=== PATIENT | female | born 1955 | race Caucasian/White ===

== ENCOUNTER → 2017-05-17 | Outpatient (CLI) | payer BC ==
[~2017-05-17] MED LIST: AMPH20TA2 PO; CARV12.52 PO; CHOL1TAB2 PO; LXP10 PO; METO50TA7 PO; MULTTAB58 PO; SUMA100T16 PO; SYN88 PO
[2017-05-17 17:28] LABS: ALT/SGPT 36 U/L (12-78); BLOOD UREA NITROGEN 11 mg/dl (7-18); BUN/CREATININE RATIO 14.3 (10-20); CARBON DIOXIDE 30 mmol/L (21-32); CHLORIDE 105 mmol/L (98-107); CHOLESTEROL 248 mg/dl (0-200); GLUCOSE 89 mg/dl (70-99); SODIUM 140 mmol/L (136-145)
[2017-05-17 17:39] LABS: ALB/GLOB RATIO 1.1 (0.9-2); ALKALINE PHOSPHATASE 54 U/L (45-117); AST/SGOT 18 U/L (15-37); CHOLESTEROL/HDL RATIO 3.2; HDL CHOLESTEROL 78 mg/dl; LDL CHOLESTEROL CALCULATED 141 mg/dl; TRIGLYCERIDES 145 mg/dl (0-150); VERY LOW DENSITY LIPOPROT CALC 29 mg/dl
[2017-05-18 06:09] LABS: ESTIMATED AVERAGE GLUCOSE 114 mg/dl; HA1C FLAG Normal (Normal)
== END | disposition home or self-care (01) ==
LOC: C.LABBC 13:47
PROVIDERS: ATTEND Internal Medicine
DX: E55.9 Vitamin D deficiency, unspecified (principal); I10 Essential (primary) hypertension; E03.9 Hypothyroidism, unspecified

== ENCOUNTER → 2017-06-15 | Outpatient (CLI) | payer BC ==
--- NOTE | 2017-06-15 10:12 | DIAGNOSTIC IMAGING REPORT ---
RIGHT KNEE 1 OR 2 VIEWS CLINICAL HISTORY: LEFT KNEE PAIN/RIGHT KNEE REPLACEMENT Right pain COMPARISON: None. DISCUSSION: Anatomic alignment status post total right knee replacement. Good contact between prosthetic and underlying bone. Moderate degenerative change medial and patellofemoral joint compartments left knee. There is no evidence for soft tissue swelling. IMPRESSION: Anatomic alignment status post total right knee replacement. Moderate degenerative change left knee. The above report was generated using voice recognition software. It may contain grammatical, syntax or spelling errors. Electronically signed by: Derrick Rai M.D. 06/15/2017 10:11 AM Dictated Date/Time: 06/15/2017 10:10 AM
== END | disposition home or self-care (01) ==
LOC: C.RDSM 13:12
PROVIDERS: ATTEND Physician Assistant
DX: M25.562 Pain in left knee (principal); Z96.651 Presence of right artificial knee joint; M17.12 Unilateral primary osteoarthritis, left knee

== ENCOUNTER → 2017-11-09 | Outpatient (CLI) | payer BC ==
[~2017-11-09] MED LIST changes: -LXP10 PO; -METO50TA7 PO
== END | disposition home or self-care (01) ==
LOC: C.PAPS 17:45
PROVIDERS: ATTEND Obstetrics & Gynecology
DX: Z01.419 Encounter for gynecological examination (general) (routine) without abnormal findings (principal)

== ENCOUNTER → 2017-12-30 | Outpatient (CLI) | payer BC ==
--- NOTE | 2017-12-30 15:12 | DIAGNOSTIC IMAGING REPORT ---
LEFT FOOT 3 VIEWS CLINICAL HISTORY: Left foot pain. FINDINGS: 3 views of the left foot are obtained. No prior studies are available for comparison at the time of dictation. The skeletal structures are well mineralized for age. No distracted fracture is seen. Cortical thickening is seen involving distal shafts of the second and third metatarsals. Joint spaces of the foot are well-maintained. A tiny plantar calcaneal enthesophyte is observed. The overlying soft tissues are normal as imaged. IMPRESSION: 1. No acute fracture is identified. 2. Cortical thickening is seen involving the distal shafts of the second and third metatarsals, possibly representing stress reaction. Clinical correlation will be required. Electronically signed by: Henrry Goodman M.D. 12/30/2017 3:10 PM Dictated Date/Time: 12/30/2017 3:00 PM
== END | disposition home or self-care (01) ==
LOC: C.RDSM 08:00
PROVIDERS: ATTEND Physician Assistant
DX: M79.672 Pain in left foot (principal); R93.7 Abnormal findings on diagnostic imaging of other parts of musculoskeletal system

== ENCOUNTER 2018-02-23 18:14 | Emergency (ER) | payer BC ==
[~2018-02-23] VITALS: Ht 175.3 cm; Wt 86.8 kg
[2018-02-23 18:17] VITALS: TEMP 36.9; Ht 175.3 cm; Wt 86.8 kg
[2018-02-23] MEDS ORDERED: STEROID INJ (18:57)
[2018-02-23] MEDS ORDERED: ASPI325T39 PO (18:58)
--- NOTE | 2018-02-23 19:07 | DIAGNOSTIC IMAGING REPORT ---
SINGLE VIEW CHEST CLINICAL HISTORY: Fever. Sepsis. FINDINGS: 2 AP, portable, upright chest radiographs are compared to study dated 08/23/2015. The examination is degraded by portable technique and patient rotation. The cardiomediastinal silhouette is unremarkable. The lungs and pleural spaces are clear. No pneumothorax is seen. The bony thorax is grossly intact. IMPRESSION: No active disease in the chest. Electronically signed by: Henrry Goodman M.D. 02/23/2018 7:06 PM Dictated Date/Time: 02/23/2018 7:04 PM
[2018-02-23 19:21] LABS: BASO % 0.2 %; BASO ABS # 0.02 K/uL (0-0.2); EOS % 0.8 %; EOS ABS # 0.09 K/uL (0-0.5); HEMATOCRIT 42.3 % (37-47); HEMOGLOBIN 14.4 g/dL (12.0-16.0); IG# 0.04 K/uL (0.00-0.02); LYMPH % 19.4 %; LYMPH ABS # 2.06 K/uL (1.2-3.4); MEAN CELL VOLUME 85.1 fL (80-100); MEAN PLATELET VOLUME 10.3 fL (7.4-10.4); MONO ABS # 1.17 K/uL (0.11-0.59); NEUT % 68.2 %; NEUT ABS # 7.22 K/uL (1.4-6.5); PLATELET COUNT 252 K/uL (130-400); RED CELL DISTRIBUTION WIDTH CV 13.1 % (11.5-14.5); RED CELL DISTRIBUTION WIDTH SD 40.2 fL (36.4-46.3)
[2018-02-23 19:32] LABS: PTT PATIENT 27.3 SECONDS (21.0-31.0)
[2018-02-23 19:38] LABS: ALBUMIN 3.8 gm/dl (3.4-5.0); ALT/SGPT 29 U/L (12-78); BLOOD UREA NITROGEN 26 mg/dl (7-18); CALCIUM 8.9 mg/dl (8.5-10.1); CARBON DIOXIDE 28 mmol/L (21-32); CREATININE 1.14 mg/dl (0.60-1.20); GLUCOSE 89 mg/dl (70-99); LIPASE 165 U/L (73-393); SODIUM 138 mmol/L (136-145)
[2018-02-23 19:49] LABS: ALKALINE PHOSPHATASE 70 U/L (45-117); AST/SGOT 14 U/L (15-37); CKMB 0.8 ng/ml (0.5-3.6); TOTAL PROTEIN 7.5 gm/dl (6.4-8.2)
--- NOTE | 2018-02-23 19:56 | EMERGENCY ROOM VISIT NOTE ---
History Report prepared by Danielle: Geoffrey Guerrero Under the Supervision of: Dr. Karosn Irizarry D.O. First contact with patient: 18:23 Chief Complaint: HYPERTENSION Stated Complaint: HYPERTENSION, UNCONTROLED-REFERRED History of Present Illness The patient is a 62 year old female who presents to the Emergency Room with complaints of constant high blood pressure that began 1 day ago. She rates this pain as 0/10 and states that she feels anxious because her blood pressure is high. She was refereed by Dr. Hernández to come to the ED for an EKG. Last night , she took Aspirin (325 mg) with some improvement. She has degenerative cervical disks and went to the pain clinic recently for a steroid shot. She states that she takes Coreg (twice a day), thyroid medication, ADD medication, and nasal medication. The patient reports that at her last physical exam [address] Hernández with benign findings. She states that her current episodes are similar to when she had hot flashes during menopause. She denies SOB, chest pain, and headache. She denies any new medication or new stressors. Source of History: patient Onset: 1 day ago Position: other (heart) Symptom Intensity: pain rated as 0/10 Quality: other (elevated blood pressure) Modifying Factors (Relieving): other (Aspirin) Associated Symptoms: No headache, No chest pain, No SOB Review of Systems See HPI for pertinent positives & negatives. A total of 10 systems reviewed and were otherwise negative. Past Medical & Surgical Medical Problems: (1) Pleurisy Family History Heart disease Pleurisy Social History Smoking Status: Never Smoker Smokeless Tobacco Use: No Alcohol Use: none Drug Use: none Marital Status: Housing Status: lives with family Current/Historical Medications Scheduled Amphetamine-Dextroamphetamine 20MG (Adderall 20MG), 20 MG PO DAILY Carvedilol (Coreg), 12.5 MG PO BID Cholecalciferol (Vitamin D-3), 4,000 UNITS PO DAILY Levothyroxine Sodium (Synthroid), 88 MCG PO DAILY Multiple Vitamin (Multivitamin), 1 TAB PO QAM [steroid injection], 1 DOSE INJ YEARLY Scheduled PRN Aspirin (Aspirin Ec), 325 MG PO DAILY PRN for blood pressure Sumatriptan Succinate (Imitrex), 100 MG PO UD PRN for Migraine Allergies Coded Allergies: No Known Allergies (Unverified , 02/23/18) Physical Exam Vital Signs Date Time Temp Pulse Resp B/P (MAP) Pulse Ox O2 Delivery O2 Flow Rate FiO2 02/23/18 18:17 36.9 76 17 183/107 97 Room Air Physical Exam CONSTITUTIONAL/VITAL SIGNS: Reviewed / noted above. GENERAL: Non-toxic in appearance. INTEGUMENTARY: Warm, dry, and [place]. HEAD: Normocephalic. EYES: without scleral icterus or trauma. ENT/OROPHARYNX: clear and moist. LYMPHADENOPATHY/NECK: Is supple without lymphadenopathy or meningismus. RESPIRATORY: Lungs clear and equal. CARDIOVASCULAR: Regular rate and rhythm. GI/ABDOMEN: Soft and nontender. No organomegaly or pulsatile mass. No rebound or guarding. Normal bowel sounds. EXTREMITIES: Warm and well perfused. BACK: No CVA tenderness. NEUROLOGICAL: Intact without focal deficits. PSYCHIATRIC: normal affect. MUSCULOSKELETAL: Normally developed with good muscle tone. Medical Decision & Procedures ER Provider Diagnostic Interpretation: Radiology results as stated below per my review and radiologist interpretation: SINGLE VIEW CHEST CLINICAL HISTORY: Fever. Sepsis. FINDINGS: 2 AP, portable, upright chest radiographs are compared to study dated 08/23/2015. The examination is degraded by portable technique and patient rotation. The cardiomediastinal silhouette is unremarkable. The lungs and pleural spaces are clear. No pneumothorax is seen. The bony thorax is grossly intact. IMPRESSION: No active disease in the chest. Electronically signed by: Henrry Goodman M.D. 02/23/2018 7:06 PM Dictated Date/Time: 02/23/2018 7:04 PM Laboratory Results 02/23/18 19:00 Red Blood Count 4.97, Mean Corpuscular Volume 85.1, Mean Corpuscular Hemoglobin 29.0, Mean Corpuscular Hemoglobin Concent 34.0, Mean Platelet Volume 10.3, Neutrophils (%) (Auto) 68.2, Lymphocytes (%) (Auto) 19.4, Monocytes (%) (Auto) 11.0, Eosinophils (%) (Auto) 0.8, Basophils (%) (Auto) 0.2, Neutrophils # (Auto ) 7.22, Lymphocytes # (Auto) 2.06, Monocytes # (Auto) 1.17, Eosinophils # (Auto ) 0.09, Basophils # (Auto) 0.02 02/23/18 19:00 Test 02/23/18 19:00 White Blood Count 10.60 K/uL (4.8-10.8) Red Blood Count 4.97 M/uL (4.2-5.4) Hemoglobin 14.4 g/dL (12.0-16.0) Hematocrit 42.3 % (37-47) Mean Corpuscular Volume 85.1 fL (80-100) Mean Corpuscular Hemoglobin 29.0 pg (25-34) Mean Corpuscular Hemoglobin Concent 34.0 g/dl (32-36) Platelet Count 252 K/uL (130-400) Mean Platelet Volume 10.3 fL (7.4-10.4) Neutrophils (%) (Auto) 68.2 % Lymphocytes (%) (Auto) 19.4 % Monocytes (%) (Auto) 11.0 % Eosinophils (%) (Auto) 0.8 % Basophils (%) (Auto) 0.2 % Neutrophils # (Auto) 7.22 K/uL (1.4-6.5) Lymphocytes # (Auto) 2.06 K/uL (1.2-3.4) Monocytes # (Auto) 1.17 K/uL (0.11-0.59) Eosinophils # (Auto) 0.09 K/uL (0-0.5) Basophils # (Auto) 0.02 K/uL (0-0.2) RDW Standard Deviation 40.2 fL (36.4-46.3) RDW Coefficient of Variation 13.1 % (11.5-14.5) Immature Granulocyte % (Auto) 0.4 % Immature Granulocyte # (Auto) 0.04 K/uL (0.00-0.02) Prothrombin Time 10.1 SECONDS (9.0-12.0) Prothromb Time International Ratio 1.0 (0.9-1.1) Activated Partial Thromboplast Time 27.3 SECONDS (21.0-31.0) Partial Thromboplastin Ratio 1.1 Anion Gap 6.0 mmol/L (3-11) Est Creatinine Clear Calc Drug Dose 60.9 ml/min Estimated GFR () 60.1 Estimated GFR (Non- 51.9 BUN/Creatinine Ratio 22.6 (10-20) Calcium Level 8.9 mg/dl (8.5-10.1) Total Bilirubin 0.2 mg/dl (0.2-1) Direct Bilirubin < 0.1 mg/dl (0-0.2) Aspartate Amino Transf (AST/SGOT) 14 U/L (15-37) Alanine Aminotransferase (ALT/SGPT) 29 U/L (12-78) Alkaline Phosphatase 70 U/L (45-117) Total Creatine Kinase 38 U/L (26-192) Creatine Kinase MB 0.8 ng/ml (0.5-3.6) Creatine Kinase MB Ratio 2.1 (0-3.0) Troponin I < 0.015 ng/ml (0-0.045) Total Protein 7.5 gm/dl (6.4-8.2) Albumin 3.8 gm/dl (3.4-5.0) Lipase 165 U/L (73-393) Thyroid Stimulating Hormone (TSH) 1.200 uIu/ml (0.300-4.500) Laboratory results as stated above per my review. ECG Per My Interpretation Indication: other (high blood pressure) Rate (beats per minute): 70 Rhythm: normal sinus Findings: no ectopy, other (No ST elevation) ED Course 1822: Previous medical records were reviewed. The patient was evaluated in room A2. A complete history and physical examination was performed. 1954: I checked on the patient and reviewed her radiology findings with her. 2009: On reevaluation, the patient is resting comfortably. I discussed the results and findings with the patient. She verbalized agreement of the treatment plan. She was discharged home. Medical Decision the differential was considered includes acute myocardial infarction, acute coronary syndrome, myocarditis, pericarditis, pericardial effusions /tamponade, esophageal perforation, thoracic aortic dissection, pulmonary embolism, pneumonia, pneumothorax, pancreatitis, shingles, acute cholecystitis, perforated abdominal viscus. This is a 62-year-old female who presents to the ED with a chief complaint of hypertension. The patient states that she has been checking her blood pressure for the past couple of days and her blood pressure has been elevated with systolic pressures anywhere from 162-195/91-107. She has been taking her blood pressure more than 5 times daily. The patient states that she has an anxious feeling because she states that she can feel when her blood pressure is elevated. She denies chest pains or shortness of breath or headaches. She denies any recent illness. She does have some chronic neck issues for which she received an injection of a steroid last week. During that visit her blood pressure was elevated as well. It was felt to be attributable to her pain and preprocedure anxiety. Her current blood pressure on evaluation here today was 183/107. She is currently taking Coreg for hypertension. Her physical exam was unremarkable. She appears asymptomatic. She is in no distress. Chest x- ray did not show acute disease, EKG shows a normal sinus rhythm at a rate of 70 , CBC is normal, chemistry panel was unremarkable, troponin was negative, TSH was within normal limits. The patient was told the results of the test. She is felt to be stable for discharge and outpatient follow-up. At this point, we will not place the patient on any additional blood pressure medications. This is referred to the PCP for further evaluation. Of note, the patient's last blood pressure was 166/99. Medication Reconcilliation Current Medication List: was personally reviewed by me Blood Pressure Screening Patient's blood pressure: Elevated blood pressure Blood pressure disposition: Referred to PCP Impression Primary Impression: Hypertension Scribe Attestation The scribe's documentation has been prepared under my direction and personally reviewed by me in its entirety. I confirm that the note above accurately reflects all work, treatment, procedures, and medical decision making performed by me. Departure Information Referrals Willy Hernández M.D. (PCP) Patient Instructions Hypertension Dc, My [facility] Additional Instructions Follow-up with your doctor for recheck later this week or early next week for recheck your blood pressure. Follow-up with your doctor for further care and evaluation in 1-2 days. Return to the emergency department for worsening or new symptoms or any concerns. You have been examined and treated today on an emergency basis only. This is not a substitute for, or an effort to provide, complete comprehensive medical care. It is impossible to recognize and treat all injuries or illnesses in a single emergency department visit. It is therefore important that you follow up closely with your doctor. Call as soon as possible for an appointment.
[2018-02-23 20:19] VITALS: BP 173/96; PULSE 74; O2SAT 97
== END 2018-02-23 20:22 | disposition home or self-care (01) ==
LOC: C.EDB 18:16 → C.EDA 20:22
DX: I10 Essential (primary) hypertension (principal); Z82.49 Family history of ischemic heart disease and other diseases of the circulatory system

== ENCOUNTER → 2018-06-24 | Outpatient (CLI) | payer BC ==
[~2018-06-24] MED LIST changes: +ASPI325T39 PO; +STEROID INJ
[2018-06-24 17:04] LABS: ALBUMIN 4.1 gm/dl (3.4-5.0); ALKALINE PHOSPHATASE 54 U/L (45-117); ALT/SGPT 21 U/L (12-78); AST/SGOT 13 U/L (15-37); BLOOD UREA NITROGEN 13 mg/dl (7-18); CALCIUM 9.2 mg/dl (8.5-10.1); CARBON DIOXIDE 29 mmol/L (21-32); GLUCOSE 99 mg/dl (70-99); POTASSIUM 3.6 mmol/L (3.5-5.1); SODIUM 140 mmol/L (136-145); TOTAL PROTEIN 7.9 gm/dl (6.4-8.2)
== END | disposition home or self-care (01) ==
LOC: C.LABBC 14:33
PROVIDERS: ATTEND Internal Medicine
DX: I10 Essential (primary) hypertension (principal)

== ENCOUNTER 2022-03-04 06:32 | Observation (INO) ==
--- NOTE | 2022-02-11 15:53 | PAT Medication Instructions ---
Medication Instructions Date of Service February 11, 2022 Home Medications Medication Instructions Recorded sumatriptan succinate 100 mg 100 mg PO DIRECTED PRN #30 tab 12/25/20 tablet (Imitrex) carvedilol 12.5 mg tablet 12.5 mg PO BID #180 tab 11/27/21 indapamide 1.25 mg tablet 1.25 mg PO QAM #30 tab 01/15/22 oxycodone-acetaminophen 5 mg-325 1 tab PO Q12H PRN #18 tab 01/30/22 mg tablet (Percocet) cholecalciferol (vitamin D3) 100 mcg (4,000 unit) capsule (Vitamin D3) 4,000 unit PO QAM sumatriptan succinate 100 mg tablet (Imitrex) 100 mg PO DIRECTED PRN ipratropium bromide 42 mcg (0.06 %) nasal spray 2 spray INTNAS TID PRN carvedilol 12.5 mg tablet 12.5 mg PO BID cyanocobalamin (vitamin B-12) 500 mcg tablet 500 mcg PO QAM indapamide 1.25 mg tablet 1.25 mg PO QAM oxycodone-acetaminophen 5 mg-325 mg tablet (Percocet) 1 tab PO Q12H PRN dextroamphetamine-amphetamine ER 20 mg 24hr capsule,extend release (Adderall XR) 20 mg PO QAM levothyroxine 88 mcg tablet 88 mcg PO QAM DO NOT take the morning of surgery cholecalciferol (vitamin D3) 100 mcg (4,000 unit) capsule (Vitamin D3) 4,000 unit PO QAM cyanocobalamin (vitamin B-12) 500 mcg tablet 500 mcg PO QAM indapamide 1.25 mg tablet 1.25 mg PO QAM dextroamphetamine-amphetamine ER 20 mg 24hr capsule,extend release (Adderall XR) 20 mg PO QAM Take morning of surgery With a small sip of water, OTHERWISE NOTHING TO EAT OR DRINK AFTER MIDNIGHT: sumatriptan succinate 100 mg tablet (Imitrex) 100 mg PO DIRECTED PRN (if needed) ipratropium bromide 42 mcg (0.06 %) nasal spray 2 spray INTNAS TID PRN (if needed) carvedilol 12.5 mg tablet 12.5 mg PO BID oxycodone-acetaminophen 5 mg-325 mg tablet (Percocet) 1 tab PO Q12H PRN (okay to take up to 4 hours prior to surgery if needed) levothyroxine 88 mcg tablet 88 mcg PO QAM Take evening before surgery sumatriptan succinate 100 mg tablet (Imitrex) 100 mg PO DIRECTED PRN (if needed) ipratropium bromide 42 mcg (0.06 %) nasal spray 2 spray INTNAS TID PRN (if needed) carvedilol 12.5 mg tablet 12.5 mg PO BID oxycodone-acetaminophen 5 mg-325 mg tablet (Percocet) 1 tab PO Q12H PRN (if needed) Other Notes If you have any questions please call us at [phone] or [phone] or [phone] or [phone]
--- NOTE | 2022-02-16 11:28 | Anesthesiology Consultation ---
Date of Service February 16, 2022 Assessment & Plan (1) Encounter for pre-operative examination: - awaiting neurology and PCP pre-op evaluations and recommendations. - rheumatology telemedicine visit 01/24/2022: "...further evaluation of positive HOWIE and concern for systemic lupus versus seronegative rheumatoid arthritis...having issues with her right hand...sudden onset of pain and swelling of her right hand...trouble twisting her wrist and it was not red...extremely painful...had labs done and was found to have a positive HOWIE...prescribed Celebrex...given prednisone...which was helpful...had seen pain management and had an injection to the back of her neck...is scheduled to have a knee replacement on 03/06/22...when this happened to her right wrist, her left knee swelled up...history notable for severe dry mouth...dry eye symptoms...initially carried a diagnosis of multiple sclerosis but when she was seen by another neurologist, this diagnosis was not confirmed. Diagnosis was in the setting of severe migraines and an abnormal MRI...diagnosed with peripheral neuropathy for which she is on gabapentin...Overall I think the acute onset of right wrist pain and swelling is more consistent with pseudogout...has osteoarthritis which can certainly flare up as well. Not sure why inflammatory markers were not done in the setting of the acute monoarticular arthritis...would not recommend keeping her on moderate doses of steroids...believe her HOWIE is actually associated either with her history of Carlie's thyroiditis or Sjogren's syndrome...no other clinical features suggestive of lupus...advised to taper prednisone...consider either colchicine or another NSAID...next steps pending test results..." - no available neurology records. Imaging records: MRI brain with and without contrast 12/11/2020: Multiple MS plaques, about the same. No enhancing plaques or areas of increased diffusion weighted signal. Head CT 08/19/2018: nonspecific scattered white matter hypodensities. Case discussed with Dr. De La Torre who advised patient will need neurology pre-op evaluation for optimization and recommendations including if is acceptable for neuraxial anesthesia or if should undergo general anesthesia. Form completed. - occasional dyspnea on exertion and trace pitting edema discussed with Dr. De La Torre who advised PCP pre-op evaluation with repeat EKG. Form completed. - Gio at surgeon's office made aware of above. - COVID screening: Per assessment on 02/16/2022: Travel screen negative, no known COVID-19 positive contacts or current COVID-19 related symptoms in past 2 weeks. Patient vaccinated. Surgeon arranging preop COVID testing, scheduled 03/02/2022. Awaiting results. Chart Review Chart Review: Pending: Refer to Additional Notes / Consult section and Patient seen in Pre Admission Testing Teaching & Discussion Pre-Anesthesia Teaching/Discussion Notes: Instructed NPO after midnight before surgery, except medications with 15 cc of water. Medication instructions provided according to the PAT guidelines. History Surgery Operation Date: 03/04/22 09:00 Proposed Procedures p Left Total Knee Arthroplasty - Brooks Robledo MD Height/Weight Height: 5 ft 9 in Weight: 86.7 kg Allergies Allergy/AdvReac Type Severity Reaction Status Date / Time bupropion [From Wellbutrin] AdvReac Intermediate Headache Verified 02/12/22 13:00 cyclobenzaprine AdvReac Intermediate Muscle Verified 02/12/22 13:00 Pain / leg pain escitalopram AdvReac Intermediate Anxiety Verified 02/12/22 13:00 paroxetine [From Paxil] AdvReac Intermediate Headache, Verified 02/12/22 13:00 Fatigue sertraline [From Zoloft] AdvReac Mild Fatigue Verified 02/12/22 13:00 venlafaxine AdvReac Mild Fatigue Verified 02/12/22 13:00 Medications Home Medications Medication Instructions Recorded Confirmed Last Taken cholecalciferol (vitamin D3) 100 4,000 unit PO QAM 06/22/19 02/12/22 Unknown mcg (4,000 unit) capsule (Vitamin D3) sumatriptan succinate 100 mg 100 mg PO DIRECTED PRN #30 tab 12/25/20 02/12/22 Unknown tablet (Imitrex) ipratropium bromide 42 mcg (0.06 2 spray INTNAS TID PRN 04/25/21 02/12/22 Unknown %) nasal spray carvedilol 12.5 mg tablet 12.5 mg PO BID #180 tab 11/27/21 02/12/22 Unknown cyanocobalamin (vitamin B-12) 500 500 mcg PO QAM tab 12/30/21 02/12/22 Unknown mcg tablet indapamide 1.25 mg tablet 1.25 mg PO QAM #30 tab 01/15/22 02/12/22 Unknown dextroamphetamine-amphetamine ER 20 mg PO QAM 02/11/22 02/12/22 Unknown 20 mg 24hr capsule,extend release (Adderall XR) levothyroxine 88 mcg tablet 88 mcg PO QAM 02/11/22 02/12/22 Unknown oxycodone-acetaminophen 5 mg-325 1 tab PO Q12H PRN #18 tab 02/11/22 02/12/22 Unknown mg tablet (Percocet) pregabalin 25 mg capsule 25 mg PO BID #60 cap 02/13/22 02/13/22 Unknown Past Medical History Medical History (Updated 02/16/22 @ 16:09 by Zaira Nichole PA-C) ADD (attention deficit disorder) Cervical radiculopathy Cervicalgia Chronic cerebral ischemia pt denies h/o stroke, states MS was considered as possible diagnosis, has not seen a neurologist > 4 yrs Degenerative disc disease Dyslipidemia Carlie's thyroiditis Hypertension controlled, stable per pt Hypothyroidism Leg length discrepancy Migraine syndrome Neuropathy generalized -- follows with [facility] rheumatology and (hx of seeing [facility] Neurology) and now sees [facility] neurology Pleurisy chronic, no problems recently. no pulmonology currently. Sicca syndrome follows with [facility] Rheumatology Situational depression Varicose veins of left lower extremity with edema Patient denies h/o seizures, heart attack, heart failure, DM, blood clots or blood transfusions. Exercise / Class Metabolic Activity II 4-5 Yardwork/Stairs/Walk up hill (occasional SOB with 1 FOS due to knee pain, denies CP) Past Family History Family History Father Myocardial infarction Hx of CABG Hypertension Cardiac disorder Grandfather Myocardial infarction Son Type 1 diabetes mellitus Uncle Cardiovascular disease Premature Sister Myocardial infarction Mother Hypertension Breast cancer Past Surgical History Surgical History (Updated 02/16/22 @ 15:01 by Gio Washington PA-C) H/O section x2 H/O oral surgery dental implants (10 dental implants) History of colonoscopy History of total right knee replacement S/P epidural steroid injection cervical with Dr Jacob S/P LASIK surgery Past Anesthesia History No Hx of Anesthesia Complications and No Family Hx of Anesthesia Complications History of PONV No Hx of PONV and No Hx of Motion Sickness Social History Smoking Status: Never smoker Do You Dip or Chew Tobacco: No Hx Alcohol Use: No Hx Substance Use: No substance use type: does not use Review of Systems Patient denies chest pain, snoring, witnessed apneas, reflux, fever, chills, cough, wheezing, or palpitations. Physical Exam Vital Signs Vitals BP 158/68 (Pt states is often elevated due to anxiety with needles/anticipated lab draw, reports 117/70s at surgeon's office this am) P 70 TEMP 98.3 SP02 96% on RA RESP 17 Physical Limited cervical extension range of motion without pain Full TMJ range of motion TMD 3 finger breaths Mallampati Score 3 Dentition: intact, 10 dental implants-front; denies chipped or loose teeth, caps/crowns or bridges Lungs: normal respiratory effort. Clear throughout to auscultation, no adventitious breath sounds Cardiac: regular rate and rhythm, no murmurs noted Carotid arteries: negative bruit bilat Extremities: trace pitting edema distal lower extremities bilat; chronic, unchanged per pt Lab Results Anesthesia Preop Results Results Anesthesia Widget: WBC 8.21 K/uL (4.8-10.8) 02/16/22 Hgb 13.2 g/dL (12.0-16.0) 02/16/22 Hct 38.9 % (37-47) 02/16/22 Plt 296 K/uL (130-400) 02/16/22 Na 139 mmol/L (136-145) 02/16/22 K 3.8 mmol/L (3.5-5.1) 02/16/22 Cl 101 mmol/L (98-107) 02/16/22 CO2 32 mmol/L (21-32) 02/16/22 BUN 16 mg/dl (6-23) 02/16/22 Creat 0.69 mg/dl (0.6-1.2) 02/16/22 Glucose Level 90 mg/dl (70-99(Fasting)) 02/16/22 PT 10.2 Seconds (9.0-12.0) 02/16/22 PTT 33.6 Seconds (21.0-31.0) H 02/16/22 INR 1.0 (0.9-1.1) 02/16/22 HA1c 5.8 % (4.5-5.6) H 02/16/22 Urine Color Yellow 02/16/22 Urine Appearance Clear (Clear) 02/16/22 Urine pH 6.5 (4.5-7.5) 02/16/22 Urine Specific [place] 1.014 (1.000-1.030) 02/16/22 Urine Protein Negative (Negative) 02/16/22 Urine Glucose (UA) Negative (Negative) 02/16/22 Urine Ketones Negative (Negative) 02/16/22 Urine Blood Negative (Negative) 02/16/22 Urine Nitrite Negative (Negative) 02/16/22 Urine Bilirubin Negative (Negative) 02/16/22 Urine Urobilinogen Negative (Negative) 02/16/22 Urine Leukocyte Esterase Negative (Negative) 02/16/22 Blood Type O Positive 02/16/22 Antibody Screen NEGATIVE 02/16/22 Testing Laboratory Results 01/28/2022 SODIUM: 141 POTASSIUM: 3.9 CHLORIDE: 101 CO2: 11 BUN: 22 CREATININE: 0.8 GLUCOSE: 96 Electrocardiogram Date: 02/16/22 Poor data quality NSR, rate [address] abnormality Chest X-Ray Date: 02/16/22 FINDINGS: No lines and tubes are seen. The cardiomediastinal silhouette is normal. The lungs are clear. No evidence of pleural effusion or pneumothorax. IMPRESSION: No acute chest disease. Cervical Spine Date: 12/19/21 FINDINGS: Straightening of the normal cervical lordosis. Multilevel decubitus space narrowing is moderate at C5-C6. Multilevel spondylitic spurring with uncovertebral hypertrophy. There is severe multilevel facet arthrosis. No acute fracture, subluxation or endplate erosions. No prevertebral edema. Mild left- sided neural foraminal narrowing at C5-C6. Lung apices are clear. IMPRESSION: 1. No acute fracture or subluxation. 2. Multilevel degenerative changes as above. Other Testing C-spine MRI 01/02/2022 IMPRESSION: 1. Compared to previous examination, there is evidence for increasing degenerative disc disease as delineated disc space level above. 2. Mild central canal stenosis is present particularly at C5-6. 3. Segmental foraminal stenosis also present. 4. No focal disc protrusion/herniation is identified.
--- NOTE | 2022-02-16 15:07 | History & Physical Report ---
Date of Service February 16, 2022 Assessment & Plan (1) Left knee DJD: Plan: Postoperative prescriptions for Percocet and Coumadin will be provided at discharge from the hospital. Anticipate discharge to home with home health services. PAT visit with testing was scheduled for today. She has already seen her PCP for medical clearance. The patient already has a cane and walker. PDMP was checked and there are no concerning findings. The patient is aware of the C OVID-19 risks associated with surgery. She is currently asymptomatic of any COVID-19 symptoms. She will obtain nasal swab testing 2 days prior to surgery. Call with any other concerns. History of Present Illness Chief Complaint: Left knee pain Primary Care Provider: Willy Hernández MD This 66-year-old female presents today with her , for her preoperative history and physical. She is scheduled to undergo a left knee total knee arthroplasty on 03/04/2022. The patient has had a longstanding history of left knee pain. It has been ongoing for over five years. It has become worse with time. She has tried conservative care measures including activity modification, use of an assistive device, and viscosupplementation injections without improvement. She elects to proceed with surgical intervention after being educated about potential risks and outcomes. Her pain is affecting her ADLs. It is worse with weightbearing. She is adjusting her activity and sitting more due to her knee pain. She would like to be more active. Frequent night pain. Occasional effusions. No catching or locking. Allergies Allergy/AdvReac Type Severity Reaction Status Date / Time bupropion [From Wellbutrin] AdvReac Intermediate Headache Verified 02/12/22 13:00 cyclobenzaprine AdvReac Intermediate Muscle Verified 02/12/22 13:00 Pain / leg pain escitalopram AdvReac Intermediate Anxiety Verified 02/12/22 13:00 paroxetine [From Paxil] AdvReac Intermediate Headache, Verified 02/12/22 13:00 Fatigue sertraline [From Zoloft] AdvReac Mild Fatigue Verified 02/12/22 13:00 venlafaxine AdvReac Mild Fatigue Verified 02/12/22 13:00 Home Medications Medication Instructions Recorded Confirmed Type cholecalciferol (vitamin D3) 100 4,000 unit PO QAM 06/22/19 02/12/22 History mcg (4,000 unit) capsule (Vitamin D3) sumatriptan succinate 100 mg 100 mg PO DIRECTED PRN #30 tab 12/25/20 02/12/22 Rx tablet (Imitrex) ipratropium bromide 42 mcg (0.06 2 spray INTNAS TID PRN 04/25/21 02/12/22 History %) nasal spray carvedilol 12.5 mg tablet 12.5 mg PO BID #180 tab 11/27/21 02/12/22 Rx cyanocobalamin (vitamin B-12) 500 500 mcg PO QAM tab 12/30/21 02/12/22 History mcg tablet indapamide 1.25 mg tablet 1.25 mg PO QAM #30 tab 01/15/22 02/12/22 Rx dextroamphetamine-amphetamine ER 20 mg PO QAM 02/11/22 02/12/22 History 20 mg 24hr capsule,extend release (Adderall XR) levothyroxine 88 mcg tablet 88 mcg PO QAM 02/11/22 02/12/22 History oxycodone-acetaminophen 5 mg-325 1 tab PO Q12H PRN #18 tab 02/11/22 02/12/22 Rx mg tablet (Percocet) pregabalin 25 mg capsule 25 mg PO BID #60 cap 02/13/22 02/13/22 Rx Past Med/Surg History Medical History (Updated 02/16/22 @ 15:04 by Gio Washington PA-C) ADD (attention deficit disorder) Cervical radiculopathy Cervicalgia Chronic cerebral ischemia hx of seeing [facility] Neurology, now follows with [facility] - no neuro records available for review to review past 2017 Degenerative disc disease Dyslipidemia Carlie's thyroiditis Hypertension controlled, stable per pt Hypothyroidism Leg length discrepancy Migraine syndrome Neuropathy generalized -- follows with [facility] rheumatology and (hx of seeing [facility] Neurology) and now sees [facility] neurology Pleurisy chronic, no problems recently. no pulmonology currently. Sicca syndrome follows with [facility] Rheumatology Situational depression Varicose veins of left lower extremity with edema Surgical History (Updated 02/16/22 @ 15:01 by Gio Washington PA-C) H/O section x2 H/O oral surgery dental implants (10 dental implants) History of colonoscopy History of total right knee replacement S/P epidural steroid injection cervical with Dr Jacob S/P LASIK surgery Family History Father Myocardial infarction Hx of CABG Hypertension Cardiac disorder Grandfather Myocardial infarction Son Type 1 diabetes mellitus Uncle Cardiovascular disease Premature Sister Myocardial infarction Mother Hypertension Breast cancer Social History Smoking Status: Never smoker Second Hand Exposure: No; Hx Alcohol Use: No Hx Substance Use: No Preferred Language: Malay Communication Ability: Effective Visual Impairment: Partially Limited Hearing Ability: Normal 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 Physical Exam Physical Exam: Vitals: Height 176.4 cm, weight 87.6 kilograms, BMI 28.2, temperature 36.5, BP 112/72, respirations 16, O2 sat 96% on room air. General: Well-developed, well-nourished middle-aged white female in no acute distress. Sitting in a chair. Alert and oriented. Obvious discomfort. Skin: Warm and dry with good turgor. No rashes or lesions. No ecchymosis or erythema. She does have an effusion in the left knee. HEENT: Normocephalic, atraumatic. Eyes: PERRLA, EOMI. Nares and oropharynx exams deferred due to COVID precautions. Heart: RRR. No MGR. Lungs: Clear to auscultation bilaterally. No crackles, rhonchi or wheezing. Good air movement. Abdomen: Bowel sounds present x4, soft, nontender. Mildly obese. No organomegaly. Musculoskeletal: Left knee evaluation reveals a lack of about 10 degrees of terminal extension. Flexion to around 100 degrees. Strength is 5/5 with fair quad tone. There is obvious varus deformity. She has focal discomfort with palpation over the medial aspect of her knee as well as the anterior peripatellar region. No pain over the lateral aspect. Stable cruciate and collateral ligaments. No defect in the patellar tendon or quadriceps tendon. She is ambulating with a severely antalgic gait, not bending the left knee. Neurologic: Gross sensation is intact across both lower extremities by soft touch. Peripheral pulses are 2+. Results & Data Results & Data ([facility]) Diagnostic Findings Radiographic imaging previously obtained shows severe medial joint space narrowing. She is omzw-up-temt. Periarticular osteophytes as well as subchondral sclerosis are both evident. No evidence of loose bodies. No evidence of fractures. Code Status & VTE Plan VTE Prophylaxis Plan VTE Prophylaxis will be ordered: Yes
--- NOTE | 2022-03-04 06:26 | History & Physical Bridge Note ---
Date of Service March 04, 2022 History & Physical Bridge Note I have examined the patient, reviewed the History & Physical and in the interval since the performance of the History & Physical I have noted the following changes of clinical significance: consent obtained/site verified /covid screen negative.no changes noted
[~2022-03-04 06:32] MED LIST changes: -AMPH20TA2 PO; -ASPI325T39 PO; -CARV12.52 PO; -CHOL1TAB2 PO; +LR 15ML/HR IV SCH; +LR 60ML/HR IV SCH; -MULTTAB58 PO; +ROPIVACAINE 0.5% HCL/PF 150 MG, BUPIVACAINE 0.75% MPF 20 ML, EPINEPHrine 0.15 MG, Ketor... INFIL SCH; -STEROID INJ; -SUMA100T16 PO; -SYN88 PO; +TRANEXAMIC ACID 1,000 MG **IV Pre-op IV SCH; +ceFAZolin 2000MG 2,000 MG/15 ML SYR IV SCH
[2022-03-04] MEDS ORDERED: BUPIVACAINE 0.5 % 5 MG/1 ML PF 10ML VIAL ONE (06:33)
[2022-03-04] MEDS ORDERED: LIDOCAINE 2% 2 ML VIAL/AMP(20MG/ML) INFIL ONE (07:37)
[2022-03-04] MEDS ORDERED: PROPOFOL IV EMULSION 10 MG/ML 20 ML VIAL IV ONE ×2 (07:37→10:17)
[2022-03-04] MEDS ORDERED: MIDAZOLAM HCL 1 MG/ML 2ML VIAL ONE (07:38)
[2022-03-04] MEDS ORDERED: fentaNYL citrate 100 MCG/2 ML VIAL ONE (07:38)
[2022-03-04] MEDS ORDERED: DEXAMETHASONE SOD INJ 4 MG/ML VIAL ONE (07:44)
[2022-03-04] MEDS ORDERED: HYDROmorphone INJ 2 MG/ML SYR/VIAL IV PRN (08:39)
[2022-03-04] MEDS ORDERED: ONDANSETRON INJ 2 MG/ML 2 ML VIAL IV PRN ×2 (08:39→12:11)
[2022-03-04] MEDS ORDERED: ePHEDrine sulfate 50 MG/ML AMP IV PRN (08:39)
[2022-03-04] MEDS ORDERED: ATROPINE SULFATE 0.1 MG/ML 10ML SYR IV PRN (08:39)
[2022-03-04] MEDS ORDERED: fentaNYL citrate 100 MCG/2 ML VIAL IV PRN (08:39)
[2022-03-04] MEDS ORDERED: ORTHO JOINT ANESTHETIC ONE (09:00)
[2022-03-04] MEDS ORDERED: KETAMINE 50 MG/5 ML SYRINGE ONE (09:43)
--- NOTE | 2022-03-04 09:56 | Discharge Summary (DS) ---
DATE OF ADMISSION: 03/04/2022. DATE OF POTENTIAL DISCHARGE: 03/05/2022. CHIEF COMPLAINT: Left knee pain. HISTORY OF PRESENT ILLNESS: Underwent elective left total knee replacement. At this point in time, things are uneventful. ALLERGIES: INCLUDE WELLBUTRIN, CYCLOBENZAPRINE, ESCITALOPRAM, PAXIL, ZOLOFT, AND VENLAFAXINE. HOME MEDICATIONS: Include vitamins, Imitrex, ipratropium bromide nasal spray, carvedilol, vitamin B1 2, indapamide, decongestants, thyroid replacement levothyroxine, p.r.n. Percocet and pregabalin 25 mg . PAST MEDICAL HISTORY: Remarkable for ADD, cervical radiculopathy, cervicalgia, chronic cerebral isch emia follows with Neurology, DJD, dyslipidemia, Carlie's thyroiditis, hypertension, hypothyroidism , leg length discrepancy, migraine syndrome, neuropathy, pleurisy, sicca syndrome sees Rheumatology, reactive depression, varicose veins. PAST SURGICAL HISTORY: Remarkable for , oral surgery, colonoscopies, right total knee repla cement, epidural steroid injection, LASIK surgery. FAMILY HISTORY: Remarkable for cardiac disease vessel, hypertension, diabetes mellitus type 1, breas t cancer. SOCIAL HISTORY: Does not smoke. Social drinking only. and lives with spouse and family. REVIEW OF SYSTEMS: Noncontributory. ASSESSMENT: Status post left total knee replacement. Continue with care pathway. Discharge on 02/20 if does well overnight. Job ID: [id number]
--- NOTE | 2022-03-04 11:03 | Post Operative Brief Note ---
Immediate Post Op Note v1 Date of Surgery March 04, 2022 Pre & Post Diagnosis Operation Date: 03/04/22 08:50 Pre-Op Diagnosis: Left Knee Degenerative Joint Disease Post-Op Diagnosis: Left Knee Degenerative Joint Disease I identified the patient and participated in the time-out.: Yes Procedure Operation Date: 03/04/22 08:50 Actual Procedures p Left Total Knee Arthroplasty(Left) - Brooks Robledo MD Surgeon Brooks Robledo MD International Trade Analyst Gudelia/Padmini/Harjeet Estimated Blood Loss 25 Findings Consistent with Post-Op Diagnosis
--- NOTE | 2022-03-04 11:14 | Operative Report ---
Post Operative Report Pre & Post Diagnosis Operation Date: 03/04/22 08:50 Pre-Op Diagnosis: Left Knee Degenerative Joint Disease Post-Op Diagnosis: Left Knee Degenerative Joint Disease I identified the patient and participated in the time-out.: Yes Procedure Operation Date: 03/04/22 08:50 Actual Procedures p Left Total Knee Arthroplasty(Left) - Brooks Robledo MD Surgeon ZAYRA Robledo MD Wildlife And Game Protector Gudelia/Padmini/Harjeet Estimated Blood Loss 25 Findings Consistent with Post-Op Diagnosis see operative report Specimens see operative report Drains none Complications none Disposition Accompanied Patient To Recovery: Yes Indications This 66-year-old female presented to the office with complaints of persisting left knee pain. She had tried conservative care measures including activity modification, oral pain medication, and injection therapy, without lasting improvement. She elected to proceed with surgical intervention after being educated about potential risks and outcomes. Preoperative imaging was obtained. Description of Procedure The patient was administered a spinal anesthetic and then taken to the operating room where she was given sedation. She was prepped and draped in the usual sterile fashion. Please see Dr. Robledo's operative report for specifics of the procedure. I was present for the entire case from initial patient positioning through final wound closure. Assistance was provided in tissue retraction, hemostasis, trial implant placement, final implant placement, and final wound closure. Patient was taken to the recovery room in satisfactory condition. I attest to the content of the Intraoperative Record and any orders documented therein. Any exceptions are noted below.
--- NOTE | 2022-03-04 11:21 | Progress Notes ---
DATE OF SERVICE: 03/04/2022 SUBJECTIVE: Postop check status post left total knee replacement. The patient tolerated the procedure well. She is awake, arousable from anesthesia. Still has spinal effects. Denies any chest pain, shortness of breath, fever, chills, nausea, vomiting or headache. Wound dressing clean, dry and intact. ASSESSMENT: Doing well. Continue with care pathway. X rays look excellent. Discharge tomorrow. Job ID: [id number] MTDD
--- NOTE | 2022-03-04 11:27 | Anesthesiology Progress Note ---
Date of Service March 04, 2022 Anesthesia Post Procedure Vital Signs Vital Signs: Temp Pulse Pulse Resp BP Pulse Ox 03/04/22 11:20 75 16 143/86 H 98 03/04/22 11:12 36.0 C L 74 22 139/78 98 03/04/22 07:01 36.9 C 68 18 141/88 H 97 Pain Intensity Left Knee: Pain Intensity: 7 Transfer of Care Handoff Completed per policy Notes Mental Status: alert / awake / arousable and participated in evaluation Patient Amnestic to Procedure: Yes Nausea / Vomiting: adequately controlled Pain: adequately controlled Airway Patency, RR, SpO2: stable & adequate BP & HR: stable & adequate Hydration State: stable & adequate Anesthetic Complications: no major complications apparent and Pt Satisfied with anesthetic care
--- NOTE | 2022-03-04 11:52 | Operative Report (OR) ---
DATE OF PROCEDURE: 03/04/2022. SURGEON: Brooks Robledo MD ENERGY OPERATIONS VICE PRESIDENT: Irasema Galeas MD SECOND SERVICE ASSISTANT: Gio Washington PA-C THIRD SERVICE ASSISTANT: Julito, Medical student. PREOPERATIVE DIAGNOSIS: Osteoarthritis, left knee. POSTOPERATIVE DIAGNOSIS: Osteoarthritis, left knee. OPERATION PERFORMED: Cemented left total knee replacement. SUMMARY OF IMPLANTS: J and J rotating platform 2.5 left femur, posterior cruciate substituting, 2.5 mobile bearing tray, 2.5 insert, 12.5 mm thick posterior cruciate substituting, oval dome 3-peg patella, size 38, two bags of Palacos G cement. ESTIMATED BLOOD LOSS: 25 mL. CRYSTALLOID: Per anesthesia. DEEP VENOUS THROMBOSIS PROPHYLAXIS: Per protocol. PERIOPERATIVE SITUATION: Medically cleared female with intractable knee pain. Wants to proceed with surgical treatment, had opposite side done years ago. DESCRIPTION OF PROCEDURE: The patient was appropriately identified, site verified, consent verified. Antibiotics were confirmed as being given. The left lower extremity was prepped and draped in the usual routine fashion. Tourniquet was inflated to 300 mmHg after exsanguination of the limb with a rubber Esmarch bandage for a total of 54 minutes. Midline exposure utilized. Parapatellar arthrotomy performed. Synovectomy completed, osteophytes resected. Distal femur entered. Distal femur resected 12 mm. Proximal tibia resected 4 mm, the extension gap was excellent. Femur was sized between a 3 and a 2.5, was measured 3, cut 2.5. No notching. Flexion gap was excellent. Posterior capsule injected. A box cut made. Size 2.5 fit well. Tibia was subluxated, broached and reamed to a size 2.5. A 12.5 spacer gave a little bit more stability in full hyperextension. There was no maltracking of patella. The patella was resected leaving 14 mm. The trial button was seated, it tracked well. The Orthomix was then injected all about the anterior aspect of the knee. All trial implants were removed. The wound was irrigated with Betadine, Pulsavac, and then the permanent cemented into position, tibia, femur, and patella in that order . The tourniquet was deflated at 12 minutes after cement mixture initiated.. The knee was flexed. No cement removal was required. The wound was irrigated with Pulsavac and Betadine. The permanent liner seated. The knee reduced. It was then closed at 40 degrees of flexion with #2 Vicryl, 2-0 Vicryl, and stainless steel clips. Appropriate dressing was applied. The patient was transferred to recovery room in satisfactory condition, having tolerated the procedure well. Job ID: [id number] [facility]ENTERAtiya
[2022-03-04] MEDS ORDERED: ALUMINUM/MAGNESIUM SUSP 30 ML UDC PO PRN (12:11)
[2022-03-04] MEDS ORDERED: MAGNESIUM HYDROXIDE SUSP 30 ML UDC PO PRN (12:11)
[2022-03-04] MEDS ORDERED: NALOXONE HCL 0.4 MG/1 ML VIAL/CARP IV PRN (12:11)
[2022-03-04] MEDS ORDERED: bisacodyL 10 MG SUPP PR PRN (12:11)
[2022-03-04] MEDS ORDERED: IPRATROPIUM BROMIDE NASAL SPRAY 0.06% 15ML NAE PRN (12:11)
[2022-03-04] MEDS ORDERED: METOCLOPRAMIDE HCL INJ 5 MG/ML 2 ML VIAL IV PRN (12:11)
[2022-03-04] MEDS ORDERED: diphenhydrAMINE 50 MG/ML VIAL IV PRN (12:11)
--- NOTE | 2022-03-04 12:13 | XRay Report ---
LEFT KNEE 2 VIEWS History: Left total knee arthroplasty. Degenerative arthritis. Postop. FINDINGS: The patient is status post a left total knee arthroplasty. The hardware is intact. No fract ure or dislocation. Skin victoriano are in place. IMPRESSION: Left total knee arthroplasty. No evidence for hardware complication. ACT 112: Negative or not required by law. Electronically signed by: Behzad Sterling M.D. 03/04/2022 12:11 PM
[2022-03-04] MEDS: SODIUM CHLORIDE 0.9% 1000ML 1,000 ML IV SCH (12:46)
--- NOTE | 2022-03-04 12:59 | Operative Report ---
Post Operative Report Pre & Post Diagnosis Operation Date: 03/04/22 08:50 Pre-Op Diagnosis: Left Knee Degenerative Joint Disease Post-Op Diagnosis: Left Knee Degenerative Joint Disease I identified the patient and participated in the time-out.: Yes Procedure Operation Date: 03/04/22 08:50 Actual Procedures p Left Total Knee Arthroplasty(Left) - Brooks Robledo MD Surgeon Dov. Nikolai EDOUARD Flight Instructor Gudelia/Padmini/Harjeet Estimated Blood Loss 25 Findings Consistent with Post-Op Diagnosis Consistent with post op diagnosis. Specimens No specimens Description of Procedure I participated in prepping dressing and assisted Dr. Menchaca during the procedure. Please see Dr. Menchaca note. I attest to the content of the Intraoperative Record and any orders documented therein. Any exceptions are noted below. Supervising Physician Co-Signing Physician Notes Dr. Menchaca
[2022-03-04] MEDS ORDERED: AMPHETAMINE ASP/SULF/DEXTRAMPH ER 20 MG CAP PO ONE (13:22)
[2022-03-04] MEDS: KETOROLAC TROMETHAMINE 15 MG/ML VIAL IV SCH ×2 (13:39→18:13)
[2022-03-04] MEDS: ACETAMINOPHEN 500 MG TAB PO SCH ×2 (13:40→20:27)
[2022-03-04] MEDS: oxyCODONE HCL IR 5 MG TAB (IMMEDIATE RELEASE) PO PRN ×2 (15:13→20:33)
[2022-03-04] MEDS: ORTHO WARFARIN NOMOGRAM SCH (15:21)
[2022-03-04] MEDS: WARFARIN SOD 5 MG TAB PO SCH ×2 (16:50→18:14)
[2022-03-04] MEDS: ASCORBIC ACID 500 MG TAB PO SCH (16:54)
[2022-03-04] MEDS: FERROUS GLUCONATE 324 MG TAB PO SCH (16:56)
[2022-03-04] MEDS ORDERED: TRANEXAMIC ACID / 0.7% NACL 1,000 MG/100 ML BAG IV SCH (17:30)
[2022-03-04] MEDS: ceFAZolin 2000MG 2,000 MG/15 ML SYR IV SCH (18:09)
[2022-03-04] MEDS: HYDROmorphone INJ 0.5 MG/0.5 ML SYR IV PRN (18:24)
[2022-03-04] MEDS: DOCUSATE SODIUM 100 MG CAP PO SCH (20:26)
[2022-03-04] MEDS: carvediloL 12.5 MG TAB PO SCH (20:28)
[2022-03-04] MEDS: PREGABALIN 25 MG CAP PO SCH (20:34)
[2022-03-04] MEDS ORDERED: SENNA 8.6 MG TAB PO SCH (21:00)
[2022-03-04] MEDS ORDERED: VANCOMYCIN HCL 1,250 MG in SODIUM CHLORIDE 0.9% 250 ML IV SCH (21:30)
[2022-03-05] MEDS: KETOROLAC TROMETHAMINE 15 MG/ML VIAL IV SCH ×2 (00:53→05:26)
[2022-03-05] MEDS: HYDROmorphone INJ 0.5 MG/0.5 ML SYR IV PRN (00:55)
[2022-03-05] MEDS: ceFAZolin 2000MG 2,000 MG/15 ML SYR IV SCH (02:52)
[2022-03-05] MEDS: ACETAMINOPHEN 500 MG TAB PO SCH (05:26)
[2022-03-05] MEDS: SODIUM CHLORIDE 0.9% 1000ML 1,000 ML IV SCH (05:35)
[2022-03-05 06:15] LABS: Hematocrit (blood only) 30.6 % (37-47); Hemoglobin 10.2 g/dL (12.0-16.0); Mean Corpuscular Hemoglobin 29.8 pg (25-34); Mean Corpuscular Hgb Conc 33.3 g/dL (32-36); Mean Corpuscular Volume 89.5 fL (80-100); Mean Platelet Volume 10.6 fL (7.4-10.4); Platelet Count 219 K/uL (130-400); RDW Coefficient of Variation 13.4 % (11.5-14.5); RDW Standard Deviation 43.8 fL (36.4-46.3); Red Blood Count 3.42 M/uL (4.2-5.4); White Blood Count 17.31 K/uL (4.8-10.8)
[2022-03-05] MEDS ORDERED: LEVOTHYROXINE SODIUM 88 MCG TABLET PO SCH (06:30)
[2022-03-05 06:48] LABS: Creatinine Clr Calc Pharmacy 94.5 ml/min; Est GFR (African American) 105.4 ml/min; Est GFR (Non-African American) 90.9 ml/min; Potassium 3.5 mmol/L (3.5-5.1)
[2022-03-05 07:02] LABS: Prothrombin Time 10.7 Seconds (9.0-12.0)
[2022-03-05] MEDS: oxyCODONE HCL IR 5 MG TAB (IMMEDIATE RELEASE) PO PRN (07:24)
[2022-03-05] MEDS: WARFARIN SOD 5 MG TAB PO SCH (07:58)
[2022-03-05] MEDS ORDERED: dexAMETHasone 10 MG in SYRINGE 0 ML IV SCH (08:00)
[2022-03-05] MEDS: ORTHO WARFARIN NOMOGRAM SCH (08:14)
[2022-03-05] MEDS: FERROUS GLUCONATE 324 MG TAB PO SCH (08:25)
[2022-03-05] MEDS: ASCORBIC ACID 500 MG TAB PO SCH (08:25)
[2022-03-05] MEDS: DOCUSATE SODIUM 100 MG CAP PO SCH (08:25)
[2022-03-05] MEDS: carvediloL 12.5 MG TAB PO SCH (08:25)
[2022-03-05] MEDS: PREGABALIN 25 MG CAP PO SCH (08:28)
[2022-03-05] MEDS ORDERED: WARFARIN SOD 5 MG TAB PO ONE (08:30)
--- NOTE | 2022-03-05 08:56 | Progress Notes ---
SUBJECTIVE: Followup of her left total knee replacement. The patient is doing well. She states she has minimal discomfort. She denies chest pain, shortness of breath, fever, chills, nausea, vomiting or headache. She ambulates well. She is eating and drinking well. OBJECTIVE: Neurovascular check femoral sciatic nerve is normal. Can do straight leg raise. Good an kle pumps. Calves nontender. LABORATORY DATA: Hematocrit stable at 30. ASSESSMENT: Overall doing well. Continue with postoperative care pathway. Elevated white count, ba sed on steroids demargination. DVT prophylaxis. Continue postop. Follow up in 2 weeks. Job ID: [id number]
[2022-03-05] MEDS ORDERED: MULTIVITAMIN TAB PO SCH (09:00)
[2022-03-05] MEDS ORDERED: AMPHETAMINE ASP/SULF/DEXTRAMPH ER 20 MG CAP PO SCH (09:00)
[2022-03-05] MEDS ORDERED: INDAPAMIDE 1.25 MG TAB PO SCH (09:00)
--- NOTE | 2022-03-05 09:47 | Orthopedic Progress Note ---
Date of Service March 05, 2022 Assessment & Plan (1) Left knee DJD: Plan: Pt deemed orthopedically and mediaclly stable for d/c Dressing taken down and changed today with 4x4s, abd, kerlix and PAUL stocking. Pt was instructed to leave on until Wednesday. Weight bearing as tolerated with walker to assist in ambulation Knee immoblizer when OOB until Wednesday Home health/PT x 2 weeks Frequently ice and elevate You may shower on Post op Day 3. Keep dressing clean and dry. No baths, hot tubs or swimming pools. Keep incision clean and dry. DVT prophylaxis: Coumadin on discharge Pain control: percocet on discharge Stool softener for constipation Follow up as scheduled in 2 weeks with [facility]. Please call out office sooner if you have any questions or concerns Admission and Anticipated Discharge Date Admission Date: March 04, 2022 Subjective Pt was seen and examined bedside. POD #1 s/p total knee arthroplasty. Pt was admitted last night for observation. No major events over night. Vitals are stable. Labs unremarkable. X-rays show normal post operative changed. Pt reports they are doing well and pain is controlled. They are tolerating PO intake and voiding adequate amounts. Working well with PT/OT. Pt denies F/C, N/V/D, SOB, CP. Pt deemed medically stable and ready for discharge. Physical Exam Physical Exam: General: Pt laying in hospital bed AA&O, in NAD, calm and cooperative during exam Lower Extremity: Dressing in tact and not saturated. Incisions clean, dry and with minimal drainage and no surrounding erythema, warmth or purulent drainage. Pt has full ROM of ankle and all 5 digits. Pt has 5/5 strength with resisted DF/PF. SLR in tact. Calf supple and non tender. NVI with sensation to light touch distally and good distal pulses present. Lower extremity noted to have good color and temperature with no signs of vascular or lymphatic insufficiency. Results & Data ([facility]) Vital Signs (Past 12 Hours) Vital Signs Temp Pulse Resp BP Pulse Ox 03/05/22 07:23 36.9 C 70 16 107/64 94 03/05/22 03:55 37 C 71 16 111/62 94 Laboratory Results 03/05/22 03/05/22 03/05/22 Range/Units 05:23 05:23 05:23 WBC (4.8-10.8) K/uL RBC (4.2-5.4) M/uL Hgb (12.0-16.0) g/dL Hct (37-47) % MCV (80-100) fL MCH (25-34) pg MCHC (32-36) g/dL RDW Std Deviation (36.4-46.3) fL RDW Coeff of Krish (11.5-14.5) % Plt Count (130-400) K/uL MPV (7.4-10.4) fL PT 10.7 (9.0-12.0) Seconds INR 1.0 (0.9-1.1) Sodium 138 (136-145) mmol/L Potassium 3.5 (3.5-5.1) mmol/L Chloride 109 H (98-107) mmol/L Carbon Dioxide 24 (21-32) mmol/L Anion Gap 5 (3-11) BUN 21 (6-23) mg/dl Creatinine 0.70 (0.6-1.2) mg/dl Est Cr Clr Drug Dosing 94.5 ml/min Est GFR ( Amer) 105.4 ml/min Est GFR (Non-Af Amer) 90.9 ml/min BUN/Creatinine Ratio 30.0 H (10-20) Glucose 153 H (70-99(Fasting)) mg/dl Calcium 8.0 L (8.5-10.1) mg/dl Hepatitis C Ab (EIA) Pending Hep C Ab Signal/Cutoff Pending 03/05/22 Range/Units 05:23 WBC 17.31 H (4.8-10.8) K/uL RBC 3.42 L (4.2-5.4) M/uL Hgb 10.2 L (12.0-16.0) g/dL Hct 30.6 L (37-47) % MCV 89.5 (80-100) fL MCH 29.8 (25-34) pg MCHC 33.3 (32-36) g/dL RDW Std Deviation 43.8 (36.4-46.3) fL RDW Coeff of Krish 13.4 (11.5-14.5) % Plt Count 219 (130-400) K/uL MPV 10.6 H (7.4-10.4) fL PT (9.0-12.0) Seconds INR (0.9-1.1) Sodium (136-145) mmol/L Potassium (3.5-5.1) mmol/L Chloride (98-107) mmol/L Carbon Dioxide (21-32) mmol/L Anion Gap (3-11) BUN (6-23) mg/dl Creatinine (0.6-1.2) mg/dl Est Cr Clr Drug Dosing ml/min Est GFR ( Amer) ml/min Est GFR (Non-Af Amer) ml/min BUN/Creatinine Ratio (10-20) Glucose (70-99(Fasting)) mg/dl Calcium (8.5-10.1) mg/dl Hepatitis C Ab (EIA) Hep C Ab Signal/Cutoff
== END 2022-03-05 12:20 | disposition home health service (06) ==
LOC: ASU 06:32 → 3N 06:32